=== PATIENT | male | born 1965 | race Two or more races ===

== ENCOUNTER 2025-02-20 08:59 | Outpatient (CLI) | payer OTHER | END 2025-02-20 09:00 | disposition home or self-care (01) | LOC: NUCLEAR 08:59 | PROVIDERS: ATTEND Internal Medicine Cardiovascular Disease | DX: I10 Essential (primary) hypertension (principal); R07.9 Chest pain, unspecified ==

== ENCOUNTER 2025-03-25 08:06 | Outpatient (CLI) | payer OTHER | END 2025-03-25 08:07 | disposition home or self-care (01) | LOC: NUCLEAR 08:06 | PROVIDERS: ATTEND Internal Medicine Cardiovascular Disease | DX: I10 Essential (primary) hypertension (principal); R07.9 Chest pain, unspecified ==